=== PATIENT | female | born 1980 | race Caucasian/White ===

== ENCOUNTER → 2016-08-31 | Outpatient (CLI) | payer OTHER, MEDICAID ==
[~2016-08-31] MED LIST: APNO TOP; DERMOPLAST SPRA56 GM TOP; LANSINOH7 GM TOP; LEVOTHROID (S200 MCG PO; PERCOCET 5-3251 EACH PO; PRENATAL 1+1)(P1 TAB PO; TUCKS1 EACH TOP; TUMS200 MG PO
--- NOTE | ~2016-08-31 | PUL ---
PATIENT'S NAME: JANIE MOSLEY [facility] AGE: 36 Y [address] ROOM: [place] [address] LOCATION: [facility] ADMIT DATE: 08/31/2016 Pulmonary DISCHARGE DATE: FAMILY PHYSICIAN: Evan Thompson MD ATTENDING PHYSICIAN: Britni Lombardo NAME OF PROCEDURE: Pulmonary Function Test DATE OF PROCEDURE: August 31, 2016 TECH: ATripe, LUMP INSPECTOR REASON FOR EXAM: SCL-70 +ANTIBODY/SOB RESULTS: 1. Spirometry FVC was 4.07 liters which is 105% of predicted and normal. FEV1 was 3.18 liters which is 99% of predicted and normal and FEVI/FVC was 78% and normal. The flow volume curve did not reveal and significant airflow limitation. After bronchodilator administration FVC increased to 4.5 liters which is an 11% increase and FEV1 increased to 3.63 liters which is a 14 % increase. FEV1/FVC was 81%. 2. DLCO was 23.8 with an adjusted DLCO of 25.1 which is 83% of predicted and normal. 3. Total lung capacity was 5.49 liters which is 104% of predicted and normal and residual volume was 1.36 liters which is 80% of predicted and normal. PHYSICIAN INTERPRETATION: The patient has no airflow limitation but has a significant bronchodilator response. Her diffusion capacity is normal. There is no evidence of restrictive lung disease. MD ROB QUINONES/megan /[id number] dtt: 09/05/16 0855 , CHRISTINA MCNEILL dtd: 09/02/16 1426
--- NOTE | ~2016-08-31 | ECHO ---
Transthoracic Echocardiography Report (TTE) Demographics Patient Name JANIE MOSLEY Date of Study 08/31/2016 A Patient Number [id number] Visit Number [id number] Date of 1980 Room Number Accession Number [id number] Gender Female Age 36 year(s) Referring Jay Das MD Specialist Physician Mayra Terrell [facility], Physician Munira Wyman APRN RVT Physician Interpreting [facility] Bilingual Secretary Physician Jenny SMALLWOOD Supervising Ordering Physician Munira Wyman APRN, MD/MLP Nurse Stress Osteopathy Doctor Conclusions Contractility Score Summary Normal Left Ventricular contractility was noted. Summary Normal LV/RV size and systolic function. The estimated left ventricular ejection fraction is 60%. Diastolic assessment reveals Grade II pseudonormal diastolic function . Mild mitral regurgitation by color Doppler. Mild tricuspid regurgitation by color Doppler. Trivial global pericardial effusion. Procedure Type of Study TTE procedure:2D Echocardiogram. Procedure Date Date: 08/31/2016 Start: 11:55 AM Study Location: [employer] Technical Quality: Adequate visualization Indications:Dyspnea/SOB. Additional Indications:possible sarcoidosis Appropriate Use Criteria: 9 Patient Status: Routine Rhythm: Sinus tachycardia HR: 81 bpm BP: 136/75 mmHg M-Mode/2D Measurements LV Diastolic Dimension: 4.71 cm LV Systolic Dimension: 2.9 cm LV Septum Diastolic: 1.02 cm LV PW Diastolic: 1.04 cm AO Root Dimension: 2.2 cm Cardiac Output: 7.02 l/min AV Cusp Separation: 1.6 cm RV Diastolic Dimension: 2.75 cm LA volume: 59 ml IVC Inspiration: 1.09 cm LVOT: 2.2 cm RV Base: 3.8 cm LVOT VTI: 22.8 cm RV Mid: 22.7 cm LV Stroke volume: 86.63 ml TAPSE: 2.47 cm TDI-S': 16 cm/s Doppler Measurements AV Peak Velocity: 1.56 m/s MV Peak E-Wave: 1.26 m/s AV Peak Gradient: 9.73 mmHg MV Peak A-Wave: 0.52 m/s AV Mean Gradient: 6 mmHg MV E/A Ratio: 2.42 LVOT Peak Velocity: 1.09 m/s MV P1/2t: 33.5 msec TR Gradient:33.64 mmHg PV Peak Velocity: 1.03 m/s Estimated RAP:3 mmHg PV Peak Gradient: 4.24 mmHg Estimated RVSP: 37 mmHg Estimated PASP: 36.64 mmHg E' Septal Velocity: 0.07 m/s A' Septal Velocity: 0.09 m/s E' Lateral Velocity: 0.11 m/s A' Lateral Velocity: 0.08 m/s MV E/E' Ratio: 17.5 Findings Left Ventricle The estimated left ventricular ejection fraction is 60%. Diastolic assessment reveals Grade II pseudonormal diastolic function . Right Ventricle Normal right ventricular size and function. Left Atrium The left atrium is normal in size. Right Atrium The right atrium is normal in size. IVC imaging is consistent with normal RA pressures. Mitral Valve Mild mitral regurgitation by color Doppler. Aortic Valve Grossly normal aortic valve structure and function. Tricuspid Valve Mild tricuspid regurgitation by color Doppler. The pulmonary pressure (RVSP) is 35 mmHg. Pulmonic Valve Grossly normal pulmonic structure and function. Pulmonic valve is not well seen. Pericardial Effusion Trivial global pericardial effusion. Miscellaneous Visualized portions of the aortic root and ascending aorta appear normal in size. Pleural Effusion No evidence of pleural effusion. Contractility Score LV regional wall motion:(0-Non visualized 1-Normal 2-Hypokinesis 3-Akinesis 4-Dyskinesis 5-Aneurysm) Signature dtt: JENNY ESPINOZA dtd: 08/31/16 [id number] Physician Self Edit
[2016-08-31 12:04] LABS: BASOPHIL % 0.5 %; EOSINOPHIL # 0.2 K/uL (0.0-0.5); EOSINOPHIL % 1.9 %; HEMATOCRIT 36.5 % (33.0-46.0); HEMOGLOBIN 11.9 g/dL (11.0-15.0); IMMATURE GRANULOCYTE # 0.1 K/uL (0.0-0.3); IMMATURE GRANULOCYTE % 0.6 %; LYMPHOCYTE # 1.8 K/uL (0.8-4.0); LYMPHOCYTE % 22.7 %; MCH 28.1 pg (27.0-34.0); MCHC 32.6 gm/dL (32.0-36.5); MCV 86.1 fl (83.0-98.0); MONOCYTE # 0.3 K/uL (0.0-1.0); MONOCYTE % 3.8 %; MPV 9.9 fl (9.4-12.4); NEUTROPHIL # (ANC) 5.6 K/uL (1.8-7.8); NEUTROPHIL % 70.5 %; NRBC % 0 /100WBC (0-0.00); PLATELET COUNT 227 K/uL (150-450); RBC 4.24 M/uL (3.50-5.50); RDW-CV 13.6 % (11.9-14.6); WBC 7.9 K/uL (4.0-11.0)
== END | disposition disaster alternative care site (69) ==
LOC: GRTH 10:39
PROVIDERS: Nurse Practitioner Family
DX: R06.02 Shortness of breath (principal); R76.8 Other specified abnormal immunological findings in serum; I34.0 Nonrheumatic mitral (valve) insufficiency; I36.1 Nonrheumatic tricuspid (valve) insufficiency